=== PATIENT | male | born 1945 | race Caucasian/White ===

== ENCOUNTER 2024-07-18 10:42 | Emergency (ER) | payer MEDICARE, OTHER ==
[2024-07-18] MEDS ORDERED: Sodium Chloride 0.9% 10 ML Syringe FLUSH PRN (11:34)
[2024-07-18] MEDS ORDERED: Metoclopramide 10 MG/2 ML SDV IVPUSH ONE (11:46)
[2024-07-18] MEDS: Sodium Chloride 0.9% 1,000 ML IV ONE ×2 (11:50→12:04)
[2024-07-18 11:55] LABS: BASOPHILS ABSOLUTE AUTO 0.04 K/uL (0.00-0.10); BASOPHILS PERCENT AUTO 0.7 % (0.1-1.3); EOSINOPHILS ABSOLUTE AUTO 0.04 K/uL (0.00-0.40); EOSINOPHILS PERCENT AUTO 0.7 % (0.0-5.4); HEMATOCRIT 33.3 % (38.4-49.7); HEMOGLOBIN 10.6 g/dL (12.9-16.9); IMMATURE GRAN PERCENT AUTO 0.3 % (0.0-0.7); LYMPHOCYTES ABSOLUTE AUTO 0.63 K/uL (0.8-3.3); LYMPHOCYTES PERCENT AUTO 10.8 % (11.4-47.7); MEAN CORPUSCULAR HEMOGLOBIN 29.6 pg (31.6-35.5); MEAN CORPUSCULAR HGB CONC 31.8 g/dL (31.6-35.5); MONOCYTES ABSOLUTE AUTO 0.53 K/uL (0.20-0.90); MONOCYTES PERCENT AUTO 9.1 % (3.3-12.6); NEUTROPHILS ABSOLUTE AUTO 4.57 K/uL (1.0-7.6); NEUTROPHILS PERCENT AUTO 78.4 % (40.0-78.1); PLATELET COUNT,PLT 166 K/uL (130-375); RED BLOOD CELL COUNT 3.58 M/uL (4.14-5.76); WHITE BLOOD CELL COUNT,WBC 5.8 K/uL (3.2-11.0)
[2024-07-18 11:56] LABS: IMMATURE GRAN ABSOLUTE AUTO 0.02 K/uL (0.00-0.23)
[2024-07-18] MEDS: diazePAM 10 MG/2 ML Syringe IVPUSH ONE (12:04)
[2024-07-18 12:10] LABS: ANION GAP 11.6 mmol/L (5.0-14.0); CALCIUM 9.4 mg/dL (8.5-10.1); CREATININE 1.2 mg/dL (0.8-1.3); EST CRCL DRUG DOSING (CG) 55.49 mL/min; POTASSIUM,K 3.9 mmol/L (3.6-5.2)
[2024-07-18] MEDS: Iopamidol 755 Mg/ML 100 ML Bottle IV SCH (12:42)
[2024-07-18] MEDS: Sodium Chloride 0.9% 10 ML Syringe FLUSH PRN (12:42)
[2024-07-18] MEDS: Sodium Chloride 0.9% 100 ML IV ONE (12:42)
== END 2024-07-18 13:40 | disposition home or self-care (01) ==
LOC: JP.ED 10:42
DX: H83.03 Labyrinthitis, bilateral (principal); I48.91 Unspecified atrial fibrillation; E78.00 Pure hypercholesterolemia, unspecified; I10 Essential (primary) hypertension; Z79.82 Long term (current) use of aspirin; Z79.899 Other long term (current) drug therapy; Z79.01 Long term (current) use of anticoagulants
CPT/HCPCS: 36415; 70450; 70496; 70498; 80048; 85025; 93005; 96361; 96374; 99284; J3360; J7030; Q9967; U0002; 93010